=== PATIENT | male | born 1985 | race Hispanic/Latino ===

== ENCOUNTER → 2024-03-14 | Outpatient (CLI) | payer BC ==
--- NOTE | 2024-03-14 10:33 | HMCIMG ---
EXAM: LUMBAR SPINE 2-3VWS REASON: Radiculopathy, lumbar region. COMPARISON: None. TECHNIQUE: 3 views of the lumbar spine were obtained. FINDINGS: There is normal appearance of the lumbar vertebral bodies. Disc interspace heights are preserved. Alignment is normal. There are no visible fractures. Soft tissues appear unremarkable. IMPRESSION: 1. Normal lumbar spine.
== END | disposition home or self-care (01) ==
LOC: OIH 08:38
PROVIDERS: ATTEND Family Medicine
DX: M54.16 Radiculopathy, lumbar region (principal)
CPT/HCPCS: 72100